=== PATIENT | male | born 1960 | race Caucasian/White ===

== ENCOUNTER 2024-01-05 01:40 | Emergency (ER) | payer OTHER ==
[2024-01-05 02:05] LABS: #Basophils 0.1 thou/uL (0.0-0.2); #Eosinophils 0.5 thou/uL (0.0-0.7); #Lymphocytes 1.6 thou/uL (1.20-3.40); #Monocytes 0.6 thou/uL (0.11-0.59); #Neutrophils 4.1 thou/uL (1.40-6.50); %Basophils 1.1 % (0.0-1.0); %Eosinophils 6.9 % (0.0-10.0); %Lymphocytes 22.9 % (21.0-51.0); %Monocytes 8.4 % (0.0-10.0); %Neutrophils 60.7 % (42.0-75.0); Hematocrit 36.7 % (42.0-52.0); Hemoglobin 13.2 g/dL (14.0-18.0); Mean Corpuscular HGB CONC 36.1 g/dL (32.0-36.0); Mean Corpuscular Hemoglobin 30.6 pg (27.0-31.0); Mean Corpuscular Volume 84.8 fl (78.0-98.0); Mean Platelet Volume 10.9 fL (7.4-10.4); Platelet Count 124 10x3/uL (130-400); RBC Distribution Width 11.4 % (11.5-14.5); Red Blood Cell (RBC) Count 4.33 mill/uL (4.70-6.10); White Blood Cell (WBC) Count 6.7 10x3/uL (4.8-10.8)
[2024-01-05 02:22] LABS: ALT (SGPT) 17 U/L (8-55); AST (SGOT) 18 U/L (5-34); Albumin 3.8 g/dL (3.4-4.8); Alkaline Phosphatase 56 U/L (40-110); Anion Gap 13 mmol/L (10-20); BUN (Urea Nitrogen) 12 mg/dL (8.4-25.7); Bilirubin, Total 0.3 mg/dL (0.2-1.2); Calc. Creatinine Clearance 0 mL/min (70-130); Calcium 9.4 mg/dL (7.8-10.44); Carbon Dioxide 25 mmol/L (23-31); Chloride 104 mmol/L (98-107); Estimated GFR 68; Glucose 182 mg/dL (80-115); Potassium 3.7 mmol/L (3.5-5.1); Protein, Total 6.8 g/dL (5.8-8.1); Sodium 138 mmol/L (136-145); Troponin I Less than 0.010 ng/mL (< 0.028)
[2024-01-05] MEDS ORDERED: Lidocaine Viscous Sol 2% 15 ml UD Cup ONE (02:25)
[2024-01-05] MEDS ORDERED: Mag-Al Plus 1200/1200/120 MG (30 mL) UDCUP ONE (02:25)
[2024-01-05] MEDS ORDERED: Ondansetron PF 4 MG/2 ML Vial ONE (02:25)
[2024-01-05] MEDS ORDERED: Pantoprazole 40 MG VIAL ONE (02:25)
[2024-01-05] MEDS ORDERED: Morphine 4 MG/ML VIAL ONE (02:25)
== END 2024-01-05 04:50 | disposition short-term general hospital (02) ==
LOC: EEVIPCON 01:40 → NAV ERS 01:40
DX: R07.2 Precordial pain (principal)
CPT/HCPCS: 71045; 80053; 84484; 85025; 93005; 96374; 96375; J2272; J2405; J2470